=== PATIENT | female | born 1960 | race American Indian/Alaskan Native ===

== ENCOUNTER 2018-12-04 14:00 | Emergency (ER) | payer MEDICARE, MEDICAID ==
[~2018-12-04] VITALS: Ht 162.6 cm; Wt 1.0 kg
[~2018-12-04 14:00] MED LIST: CYCL-1 PO; HYDR1TAB PO; IBUP-1984 PO; MULTIVITAMIN PO; ONDA4TAB12 PO
[2018-12-04 14:20] VITALS: BP 119/75
[2018-12-04] MEDS ORDERED: GABA300C PO (14:48)
[2018-12-04] MEDS ORDERED: ACYC-202 PO (14:48)
[2018-12-04] MEDS ORDERED: HYDR-4383 PO (14:48)
[2018-12-04] MEDS ORDERED: ACYC5CRE2 TP (14:48)
== END 2018-12-04 15:13 | disposition home or self-care (01) ==
LOC: ER 14:01
DX: B02.9 Zoster without complications (principal); M19.90 Unspecified osteoarthritis, unspecified site; F12.90 Cannabis use, unspecified, uncomplicated; Z98.890 Other specified postprocedural states; Z79.2 Long term (current) use of antibiotics; Z79.899 Other long term (current) drug therapy
CPT/HCPCS: 99283

== ENCOUNTER 2019-11-15 17:09 | Emergency (ER) | payer MEDICARE, MEDICAID ==
[~2019-11-15] VITALS: Ht 160 cm; Wt 104.5 kg
[~2019-11-15 17:09] MED LIST changes: +GABA300C PO; +HYDR-4383 PO
[2019-11-15] MEDS ORDERED: normal saline 1000ML IV soln IVB ONE (17:45)
[2019-11-15] MEDS ORDERED: methylPREDNISolone sod succ 125mg/2ml vial IV ONE (17:45)
[2019-11-15 18:58] LABS: BASOPHILS % (AUTO) 0.3 % (0-1); EOSINOPHILS % (AUTO) 0.2 % (0-6); HEMATOCRIT 44.3 % (35.0-45.0); HEMOGLOBIN 15.3 g/dl (12.0-16.0); LYMPHOCYTES % (AUTO) 26.7 % (21-51); MEAN CORPUSCULAR HEMOGLOBIN 33.2 PG (27.0-31.0); MEAN CORPUSCULAR HGB CONC 34.5 g/dL (33.0-36.5); MEAN CORPUSCULAR VOLUME 96.2 FL (78-98); MONOCYTES # (AUTO) 0.3 X10'3 (0-0.9); MONOCYTES % (AUTO) 7.5 % (2-12); NEUTROPHILS # (AUTO) 2.5 X10'3 (1.8-7.7); NEUTROPHILS % (AUTO) 65.3 % (42-75); PLATELET COUNT 156 X10'3 (140-440); RED CELL DISTRIBUTION WIDTH 13.2 % (11.5-14.5); WHITE BLOOD COUNT 3.8 X10'3 (4.5-11.0)
[2019-11-15 19:04] LABS: ALANINE AMINOTRANSFERASE 42 U/L (12-78); ALBUMIN 3.8 G/DL (3.4-5.0); ALBUMIN/GLOBULIN RATIO 0.9 (1.1-1.5); ALKALINE PHOSPHATASE 88 IU/L (46-116); ANION GAP 12 (8-16); ASPARTATE AMINO TRANSFERASE 34 U/L (10-37); BILIRUBIN,TOTAL 0.6 MG/DL (0.1-1.0); BLOOD UREA NITROGEN 10 MG/DL (7-18); BUN/CREATININE RATIO 11.2 (6.6-38.0); CALCIUM 8.4 MG/DL (8.5-10.1); CHLORIDE 98 MMOL/L (99-107); CREATININE 0.89 MG/DL (0.40-0.90); GLUCOSE 107 MG/DL (70-104); POTASSIUM 4.1 MMOL/L (3.5-5.1); SODIUM 134 MMOL/L (135-145); TOTAL CARBON DIOXIDE 23.7 MMOL/L (24-32); eGFR 65 ML/MIN
[2019-11-15] MEDS ORDERED: PRED20TA PO (19:19)
[2019-11-15] MEDS ORDERED: ondansetron/PF 4mg/2ml inj IV ONE (19:25)
[2019-11-15 20:23] VITALS: BP 134/86
== END 2019-11-15 20:00 | disposition home or self-care (01) ==
LOC: ER 17:10
DX: J06.9 Acute upper respiratory infection, unspecified (principal); J45.909 Unspecified asthma, uncomplicated; M19.90 Unspecified osteoarthritis, unspecified site; F12.90 Cannabis use, unspecified, uncomplicated; R11.2 Nausea with vomiting, unspecified; R19.7 Diarrhea, unspecified; R50.9 Fever, unspecified; R05 Cough; R53.1 Weakness; R06.02 Shortness of breath; Z20.818 Contact with and (suspected) exposure to other bacterial communicable diseases
CPT/HCPCS: 36415; 71045; 80053; 83605; 83880; 84145; 85025; 87040; 93005; 96361; 96374; 96375; 99285; J2405; J2930; J7030

== ENCOUNTER 2019-11-19 16:18 | Inpatient (IN) | payer MEDICARE, MEDICAID ==
[~2019-11-19] VITALS: Ht 165.1 cm; Wt 104.5 kg
[~2019-11-19 16:18] MED LIST changes: +PRED20TA PO
--- NOTE | 2019-11-19 16:42 | NUR ---
STAFF IN CONTACT W/ PT: SHREYA, jaylene; KATIA roca; YAZAN ENGLISH
[2019-11-19] MEDS ORDERED: LIDOcaine/epinephrine/tetracaine TOPICAL sol 3 ML syringe TOP ONE (16:50)
[2019-11-19] MEDS ORDERED: normal saline 1000ml 1,000 ML IV ONE ×2 (17:25)
[2019-11-19 17:36] LABS: BASOPHILS % (AUTO) 0.2 % (0-1); EOSINOPHILS % (AUTO) 0.1 % (0-6); HEMATOCRIT 40.4 % (35.0-45.0); LYMPHOCYTES # (AUTO) 0.7 X10'3 (1.1-4.8); LYMPHOCYTES % (AUTO) 11.7 % (21-51); MEAN CORPUSCULAR HEMOGLOBIN 32.7 PG (27.0-31.0); MEAN CORPUSCULAR HGB CONC 34.8 g/dL (33.0-36.5); MEAN CORPUSCULAR VOLUME 94.2 FL (78-98); MEAN PLATELET VOLUME 7.8 FL (7.4-10.4); MONOCYTES # (AUTO) 0.3 X10'3 (0-0.9); MONOCYTES % (AUTO) 4.8 % (2-12); NEUTROPHILS # (AUTO) 4.6 X10'3 (1.8-7.7); NEUTROPHILS % (AUTO) 83.2 % (42-75); PLATELET COUNT 182 X10'3 (140-440); RED BLOOD COUNT 4.29 X10'6 (4.20-5.60); RED CELL DISTRIBUTION WIDTH 13.2 % (11.5-14.5); WHITE BLOOD COUNT 5.6 X10'3 (4.5-11.0)
[2019-11-19] MEDS ORDERED: ibuprofen tablet 400 MG TABLET PO ONE (17:40)
[2019-11-19 17:59] LABS: ALANINE AMINOTRANSFERASE 32 U/L (12-78); ALBUMIN 3.3 G/DL (3.4-5.0); ALBUMIN/GLOBULIN RATIO 0.7 (1.1-1.5); ALKALINE PHOSPHATASE 72 IU/L (46-116); ANION GAP 5 (8-16); ASPARTATE AMINO TRANSFERASE 29 U/L (10-37); BILIRUBIN,TOTAL 0.6 MG/DL (0.1-1.0); BLOOD UREA NITROGEN 15 MG/DL (7-18); CALCIUM 8.6 MG/DL (8.5-10.1); CHLORIDE 99 MMOL/L (99-107); CREATININE 0.88 MG/DL (0.40-0.90); GLUCOSE 95 MG/DL (70-104); POTASSIUM 3.3 MMOL/L (3.5-5.1); SODIUM 134 MMOL/L (135-145); TOTAL CARBON DIOXIDE 30.3 MMOL/L (24-32); TOTAL PROTEIN 7.8 G/DL (6.4-8.2); eGFR 66 ML/MIN
[2019-11-19] MEDS ORDERED: budesonide 0.5mg/2ml UD nebule IH STA (18:08)
[2019-11-19 18:12] LABS: CLARITY,URINE CLOUDY (Clear); COLOR,URINE YELLOW (Yellow); GLUCOSE, URINE NEGATIVE (Neg); KETONES,URINE 15 mg/dl (Neg); LEUKOCYTE ESTERASE ,URINE SMALL (Neg); NITRITES, URINE NEGATIVE (Neg); OCCULT BLOOD,URINE NEGATIVE (Neg); PH,URINE 6.5 (4.8-8.0); PROTEIN,URINE 30 mg/dl (Neg); UROBILINOGEN,URINE >=8.0 E.U/dL (0.2-1.0)
[2019-11-19 18:15] LABS: UA COLLECTION TYPE VOIDED
[2019-11-19 18:18] LABS: SQUAMOUS EPITHELIAL CELL,UR MANY /LPF (FEW); TRANSITIONAL EPI CELLS,URINE MANY /HPF
[2019-11-19 18:19] LABS: MUCUS STRANDS MODERATE /LPF (Neg)
[2019-11-19 18:20] LABS: WBC CLUMPS,URINE FEW /HPF (NEGATIVE); WBC,URINE 50-100 /HPF (0-4)
[2019-11-19 18:21] LABS: BACTERIA,URINE FEW /HPF (Neg); RBC,URINE 0-2 /HPF (0-2)
[2019-11-19] MEDS ORDERED: HYDR-4353 PO (18:26)
[2019-11-19] MEDS ORDERED: GABA-530 PO (18:31)
[2019-11-19] MEDS ORDERED: PRED5TAB PO (18:31)
[2019-11-19] MEDS ORDERED: CYCL-394 PO (18:31)
[2019-11-19] MEDS ORDERED: albuterol 2.5 MG/3 ML nebule NEB ONE (18:45)
[2019-11-19] MEDS ORDERED: ALBUTEROL INHALER 1 PUFF/90 MCG INHALER IH STA (18:55)
--- NOTE | 2019-11-19 19:22 | NUR ---
Albuterol MDI given. Unable to give pulmicort svn due to Covid + tx policy
[2019-11-19] MEDS ORDERED: acetaminophen 325mg tablet PO PRN (19:30)
[2019-11-19] MEDS ORDERED: mag hydrox/Alum hydrox/simeth 30ml oral suspension PO PRN (19:30)
[2019-11-19] MEDS ORDERED: magnesium hydroxide 30ml (MOM) UD suspension PO PRN (19:30)
[2019-11-19] MEDS ORDERED: ondansetron/PF 4mg/2ml inj IV PRN (19:30)
--- NOTE | 2019-11-19 20:23 | NUR ---
PAGED HOSPITALIST ADIS TO SEE IF PT CAN GO TO SURGICAL WITHOUT TELE THEY HAVE A NEGATIVE PRESSURE ROOM AVAILABLE.
[2019-11-19] MEDS: heparin, porcine 5000 units/ml vial SQ SCH (20:52)
[2019-11-19] MEDS: CefTRIAXone/D5W-Rocephin 1gm 50 ML IV SCH (20:52)
--- NOTE | 2019-11-19 20:56 | NUR ---
ADIS WAS TEXTED EARLIER ABOUT MOVING PT TO SURGICAL NO TELE AND PER POWER AND RECOVERY SHIFT ENGINEER, ADIS TEXTED BACK THAT HE AGREES WITH THE PLAN. ADMIT ORDER CHANGED AND SALES AND MARKETING AGENT AWARE.
[2019-11-19] MEDS ORDERED: dexamethasone sod phosphate 10mg/ml inj IV STA (21:46)
[2019-11-19 22:08] LABS: C-REACTIVE PROTEIN 13.97 MG/DL (0.0-0.5); LACTATE DEHYDROGENASE 391 U/L (81-234)
[2019-11-19 23:31] VITALS: BP 120/70
--- NOTE | 2019-11-20 00:42 | NUR ---
pt arrived to unit, labs drawn, placed in room, VSS, c/o headache and cough. no s/sx resp distress. pt oriented to room, call light in reach, 2x rails up, bll. will continue to monitor
[2019-11-20 01:06] LABS: BASOPHILS % (AUTO) 0.2 % (0-1); EOSINOPHILS % (AUTO) 0.1 % (0-6); HEMATOCRIT 35.3 % (35.0-45.0); HEMOGLOBIN 12.3 g/dl (12.0-16.0); LYMPHOCYTES # (AUTO) 0.9 X10'3 (1.1-4.8); LYMPHOCYTES % (AUTO) 13.9 % (21-51); MEAN CORPUSCULAR HEMOGLOBIN 33.5 PG (27.0-31.0); MEAN CORPUSCULAR VOLUME 95.7 FL (78-98); MEAN PLATELET VOLUME 7.7 FL (7.4-10.4); MONOCYTES # (AUTO) 0.3 X10'3 (0-0.9); MONOCYTES % (AUTO) 4.9 % (2-12); NEUTROPHILS # (AUTO) 5.5 X10'3 (1.8-7.7); NEUTROPHILS % (AUTO) 80.9 % (42-75); PLATELET COUNT 181 X10'3 (140-440); RED BLOOD COUNT 3.69 X10'6 (4.20-5.60); RED CELL DISTRIBUTION WIDTH 13.4 % (11.5-14.5); WHITE BLOOD COUNT 6.8 X10'3 (4.5-11.0)
[2019-11-20 01:15] LABS: ALBUMIN 2.8 G/DL (3.4-5.0); ANION GAP 9 (8-16); BLOOD UREA NITROGEN 13 MG/DL (7-18); BUN/CREATININE RATIO 15.3 (6.6-38.0); CALCIUM 7.8 MG/DL (8.5-10.1); CHLORIDE 102 MMOL/L (99-107); CREATININE 0.85 MG/DL (0.40-0.90); GLUCOSE 88 MG/DL (70-104); SODIUM 137 MMOL/L (135-145); TOTAL CARBON DIOXIDE 26.4 MMOL/L (24-32); eGFR 68 ML/MIN
[2019-11-20 01:17] LABS: D-DIMER 1.36 MG/L FEU (0-0.50)
--- NOTE | 2019-11-20 02:20 | NUR ---
pt c/o running fever and feeling hot. upon entering room, pt in bathroom. returned to bed, pt stated felt little dizzy but steady gait. increased O2 3L, educated on incentive spirometer and flutter valve use. will continue to monitor
[2019-11-20 02:31] VITALS: BP 123/78
--- NOTE | 2019-11-20 03:30 | NUR ---
pt resting comfortably, c/o sweatiness. provided sandwich crackers and yogurt
--- NOTE | 2019-11-20 06:15 | NUR ---
Patient in room [facility]. I have received report from Dm RIVERO and had the opportunity to ask questions and assume patient care.
[2019-11-20] MEDS: CefTRIAXone/D5W-Rocephin 1gm 50 ML IV SCH (08:13)
[2019-11-20] MEDS: heparin, porcine 5000 units/ml vial SQ SCH (08:14)
[2019-11-20 08:27] VITALS: BP 115/69
[2019-11-20] MEDS ORDERED: FLUT16SP26 (09:58)
[2019-11-20] MEDS ORDERED: ibuprofen 200mg tablet PO PRN (10:45)
--- NOTE | 2019-11-20 10:45 | NUR ---
PAGER ID: [phone] MESSAGE: Travis Surg [id number] RE: 341 Jaime [place]. Patient potassium is low at 3.0 did you want me to add Potassium protocol? Thanks Travis. Still waiting on C. Diff result.
[2019-11-20 10:55] LABS: C DIFF ANTIGEN NEGATIVE (NEGATIVE); C DIFF SPECIMEN=DIARRHEA? ACCEPTABLE; C DIFFICILE TOXINS A&B NEGATIVE (Neg)
[2019-11-20] MEDS ORDERED: loperamide 2mg capsule PO ONE (11:35)
[2019-11-20] MEDS ORDERED: loperamide 2mg capsule PO PRN (11:35)
--- NOTE | 2019-11-20 11:42 | NUR ---
PAGER ID: [phone] MESSAGE: Travis Surg [phone] RE: 341 [place], A Patient is negative C.Diff, but potassium is 3.0 would you like me to add protocol? Thanks.
[2019-11-20] MEDS ORDERED: potassium Cl 20 mEq SR tablet PO STA (11:48)
[2019-11-20 12:28] VITALS: BP 124/81
[2019-11-20] MEDS: enoxaparin 40mg/0.4ml syringe SUBCUT SCH (16:30)
[2019-11-20] MEDS: dexamethasone 4mg tablet PO SCH (17:09)
--- NOTE | 2019-11-20 18:11 | NUR ---
Problems reprioritized. Patient report given, questions answered & plan of care reviewed with Dm RIVERO.
[2019-11-20 19:19] VITALS: BP 120/73
--- NOTE | 2019-11-20 21:15 | NUR ---
pt in no apparent distress, administered inhaler, linens changed and assisted pt to shower
[2019-11-20] MEDS: ALBUTEROL INHALER 1 PUFF/90 MCG INHALER IH PRN (21:19)
[2019-11-21 00:27] VITALS: BP 112/73
[2019-11-21] MEDS: ALBUTEROL INHALER 1 PUFF/90 MCG INHALER IH PRN ×3 (05:34→17:45)
[2019-11-21 06:04] LABS: BASOPHILS % (AUTO) 0.2 % (0-1); EOSINOPHILS % (AUTO) 0 % (0-6); HEMATOCRIT 36.6 % (35.0-45.0); HEMOGLOBIN 12.6 g/dl (12.0-16.0); LYMPHOCYTES % (AUTO) 16.7 % (21-51); MEAN CORPUSCULAR HEMOGLOBIN 32.4 PG (27.0-31.0); MEAN CORPUSCULAR HGB CONC 34.4 g/dL (33.0-36.5); MEAN CORPUSCULAR VOLUME 94.4 FL (78-98); MEAN PLATELET VOLUME 7.8 FL (7.4-10.4); MONOCYTES # (AUTO) 0.5 X10'3 (0-0.9); MONOCYTES % (AUTO) 7.4 % (2-12); NEUTROPHILS # (AUTO) 4.7 X10'3 (1.8-7.7); NEUTROPHILS % (AUTO) 75.7 % (42-75); PLATELET COUNT 247 X10'3 (140-440); RED BLOOD COUNT 3.88 X10'6 (4.20-5.60); RED CELL DISTRIBUTION WIDTH 13.1 % (11.5-14.5); WHITE BLOOD COUNT 6.2 X10'3 (4.5-11.0)
[2019-11-21 06:13] LABS: D-DIMER 1.33 MG/L FEU (0-0.50)
[2019-11-21 06:16] LABS: ALBUMIN 2.8 G/DL (3.4-5.0); ANION GAP 10 (8-16); BLOOD UREA NITROGEN 16 MG/DL (7-18); BUN/CREATININE RATIO 22.9 (6.6-38.0); C-REACTIVE PROTEIN 8.82 MG/DL (0.0-0.5); CALCIUM 8.8 MG/DL (8.5-10.1); CHLORIDE 104 MMOL/L (99-107); GLUCOSE 133 MG/DL (70-104); LACTATE DEHYDROGENASE 273 U/L (81-234); POTASSIUM 3.7 MMOL/L (3.5-5.1); SODIUM 138 MMOL/L (135-145); TOTAL CARBON DIOXIDE 24.4 MMOL/L (24-32); eGFR 86 ML/MIN
--- NOTE | 2019-11-21 06:55 | NUR ---
Patient in room [facility]. I have received report from Dm RIVERO and had the opportunity to ask questions and assume patient care.
[2019-11-21] MEDS: dexamethasone 4mg tablet PO SCH (09:00)
[2019-11-21] MEDS: enoxaparin 40mg/0.4ml syringe SUBCUT SCH (09:02)
[2019-11-21 09:08] VITALS: BP 127/84
[2019-11-21 13:05] VITALS: BP 121/71
--- NOTE | 2019-11-21 18:10 | NUR ---
PAGER ID: [phone] MESSAGE: Travis Surg [id number] RE: 341 Ana Mendez Patient says she has not had more than one of slip since admitted and wanted a slip aid. Did you want to add Restoril or something? Thanks
--- NOTE | 2019-11-21 18:24 | NUR ---
Problems reprioritized. Patient report given, questions answered & plan of care reviewed with Adrienne RIVERO.
--- NOTE | 2019-11-21 18:30 | NUR ---
Received report from primary care nurse Travis RN. Assumed patient care. Patient is awake and alert on 1LNC. In no apparent distress eating her dinner. Call light and items of frequent use within reach. Will continue to monitor for changes. Denies needs at this time.
[2019-11-21 20:05] VITALS: BP 137/83
[2019-11-21] MEDS: zolpidem 5mg tablet PO PRN (20:19)
[2019-11-21] MEDS ORDERED: MULT-227 PO (20:35)
[2019-11-22 04:29] VITALS: BP 114/80
[2019-11-22 05:28] LABS: BASOPHILS % (AUTO) 0.1 % (0-1); EOSINOPHILS % (AUTO) 0.1 % (0-6); HEMATOCRIT 38.2 % (35.0-45.0); HEMOGLOBIN 13.4 g/dl (12.0-16.0); LYMPHOCYTES # (AUTO) 1.8 X10'3 (1.1-4.8); LYMPHOCYTES % (AUTO) 23.6 % (21-51); MEAN CORPUSCULAR HEMOGLOBIN 33.1 PG (27.0-31.0); MEAN CORPUSCULAR VOLUME 94.6 FL (78-98); MEAN PLATELET VOLUME 7.9 FL (7.4-10.4); MONOCYTES # (AUTO) 0.6 X10'3 (0-0.9); MONOCYTES % (AUTO) 7.9 % (2-12); NEUTROPHILS # (AUTO) 5.2 X10'3 (1.8-7.7); NEUTROPHILS % (AUTO) 68.3 % (42-75); PLATELET COUNT 276 X10'3 (140-440); RED BLOOD COUNT 4.04 X10'6 (4.20-5.60); RED CELL DISTRIBUTION WIDTH 13.2 % (11.5-14.5); WHITE BLOOD COUNT 7.5 X10'3 (4.5-11.0)
[2019-11-22 05:32] LABS: ALBUMIN 2.9 G/DL (3.4-5.0); ANION GAP 10 (8-16); BLOOD UREA NITROGEN 18 MG/DL (7-18); BUN/CREATININE RATIO 24.3 (6.6-38.0); C-REACTIVE PROTEIN 3.81 MG/DL (0.0-0.5); CALCIUM 8.7 MG/DL (8.5-10.1); CHLORIDE 104 MMOL/L (99-107); CREATININE 0.74 MG/DL (0.40-0.90); GLUCOSE 98 MG/DL (70-104); LACTATE DEHYDROGENASE 255 U/L (81-234); POTASSIUM 3.5 MMOL/L (3.5-5.1); SODIUM 139 MMOL/L (135-145); TOTAL CARBON DIOXIDE 25.2 MMOL/L (24-32); eGFR 80 ML/MIN
--- NOTE | 2019-11-22 06:20 | NUR ---
Patient is awake and alert on 1LNC in no apparent distress watching television. Reported off to Gissel RIVERO.
--- NOTE | 2019-11-22 06:31 | NUR ---
Patient in room [facility]. I have received report from JOSEFA CASEY and had the opportunity to ask questions and assume patient care.
[2019-11-22] MEDS: dexamethasone 4mg tablet PO SCH (08:20)
[2019-11-22] MEDS: enoxaparin 40mg/0.4ml syringe SUBCUT SCH (08:22)
[2019-11-22] MEDS: ALBUTEROL INHALER 1 PUFF/90 MCG INHALER IH PRN ×2 (08:29→12:45)
[2019-11-22 09:21] VITALS: BP 129/77
[2019-11-22 12:46] VITALS: BP 122/82
--- NOTE | 2019-11-22 13:51 | NUR ---
NO SHORTNESS OF BREATH Addendum: 11/22/19 at 1353 by Gissel Ramirez RT Amended: Links added.
--- NOTE | 2019-11-22 14:39 | NUR ---
Per Ester RN, pt c/o RTx entered room wearing a simple mask. Regi Langford Rocket Test Fire Worker, and Nataly De La Rosa, Director 3Surgical notified.
--- NOTE | 2019-11-22 16:43 | NUR ---
WAS ABLE TO WEEN PATIENT OFF OXYGEN, AT REST SATING AT 92-94 AND 90 AFTER GETTING UP TO BATHROOM.
--- NOTE | 2019-11-22 18:20 | NUR ---
Received report from primary care nurse Ester RIVERO. Patient is awake and alert sitting upright in bed on room air. In no apparent distress. HR 64 O2 94%. Call light and items of frequent use within reach. Will continue to monitor for changes.
--- NOTE | 2019-11-22 18:21 | NUR ---
Problems reprioritized. Patient report given, questions answered & plan of care reviewed with JOSEFA CASEY.
[2019-11-22 18:37] VITALS: BP 131/83
[2019-11-22] MEDS: zolpidem 5mg tablet PO PRN (21:01)
[2019-11-23 04:28] VITALS: BP 118/69
[2019-11-23 05:05] LABS: BASOPHILS % (AUTO) 0.1 % (0-1); EOSINOPHILS % (AUTO) 0.1 % (0-6); HEMATOCRIT 39.8 % (35.0-45.0); LYMPHOCYTES # (AUTO) 2.1 X10'3 (1.1-4.8); LYMPHOCYTES % (AUTO) 24.7 % (21-51); MEAN CORPUSCULAR HEMOGLOBIN 33.2 PG (27.0-31.0); MEAN CORPUSCULAR HGB CONC 35.3 g/dL (33.0-36.5); MEAN CORPUSCULAR VOLUME 94.1 FL (78-98); MEAN PLATELET VOLUME 7.6 FL (7.4-10.4); MONOCYTES # (AUTO) 0.6 X10'3 (0-0.9); MONOCYTES % (AUTO) 7.4 % (2-12); NEUTROPHILS # (AUTO) 5.7 X10'3 (1.8-7.7); NEUTROPHILS % (AUTO) 67.7 % (42-75); PLATELET COUNT 309 X10'3 (140-440); RED BLOOD COUNT 4.23 X10'6 (4.20-5.60); WHITE BLOOD COUNT 8.5 X10'3 (4.5-11.0)
[2019-11-23 05:22] LABS: ALBUMIN 3.1 G/DL (3.4-5.0); ANION GAP 9 (8-16); BLOOD UREA NITROGEN 18 MG/DL (7-18); BUN/CREATININE RATIO 22.5 (6.6-38.0); CALCIUM 9.2 MG/DL (8.5-10.1); CHLORIDE 102 MMOL/L (99-107); GLUCOSE 100 MG/DL (70-104); LACTATE DEHYDROGENASE 250 U/L (81-234); POTASSIUM 3.9 MMOL/L (3.5-5.1); SODIUM 138 MMOL/L (135-145); TOTAL CARBON DIOXIDE 27.1 MMOL/L (24-32); eGFR 73 ML/MIN
--- NOTE | 2019-11-23 06:00 | NUR ---
Reported off to Ester RIVERO. Patient is awake and alert on room air. In no apparent distress on room air. Call light and items of frequent use within reach.
--- NOTE | 2019-11-23 06:07 | NUR ---
Patient in room [facility]. I have received report from JOSEFA CASEY and had the opportunity to ask questions and assume patient care.
[2019-11-23] MEDS ORDERED: dexamethasone 4mg tablet PO SCH ×2 (08:00→13:41)
[2019-11-23 08:18] VITALS: BP 124/85
[2019-11-23] MEDS: enoxaparin 40mg/0.4ml syringe SUBCUT SCH (08:21)
[2019-11-23] MEDS: ALBUTEROL INHALER 1 PUFF/90 MCG INHALER IH PRN ×2 (08:22→12:37)
[2019-11-23] MEDS ORDERED: DEC4T PO (11:25)
[2019-11-23] MEDS ORDERED: ALBU8HFA PO (11:25)
[2019-11-23 12:38] VITALS: BP 112/76
--- NOTE | 2019-11-23 14:50 | NUR ---
PATIENT STABLE AND APPROPRIATE FOR DISCHARGE, IV TAKEN OUT, EDUCATION GIVEN, ALL BELONGINGS SENT WITH PATIENT, IS AND FLUTTER VALVE SENT WITH PATIENT, PATIENT WORE ALL APPROPRIATE PPE WHILE TRANSFERRING TO CAR, PATIENT TAKEN IN WHEEL CHAIR OUT A BACK ENTRANCE AND TAKEN TO CAR WHERE PATIENT WILL TAKE SELF HOME
[2019-11-24] MEDS ORDERED: dexamethasone 1mg tablet PO SCH (08:00)
== END 2019-11-23 13:55 | disposition home or self-care (01) | DRG 177 ==
LOC: ER 16:18 → ED HOLD 19:29 → SUR 3N 23:17
PROVIDERS: ADMIT Family Medicine; ATTEND Internal Medicine
DX: U07.1 COVID-19 (principal); J12.89 Other viral pneumonia; J96.01 Acute respiratory failure with hypoxia; E66.01 Morbid (severe) obesity due to excess calories; E86.0 Dehydration; E87.6 Hypokalemia; F12.90 Cannabis use, unspecified, uncomplicated; G89.4 Chronic pain syndrome; J45.909 Unspecified asthma, uncomplicated; M19.90 Unspecified osteoarthritis, unspecified site; R19.7 Diarrhea, unspecified; Z68.38 Body mass index [BMI] 38.0-38.9, adult
CPT/HCPCS: 36415; 71045; 80048; 80053; 81001; 83605; 83615; 84145; 85025; 85379; 86140; 87040; 87081; 87324; 87449; 93005; 94640; 94760; 96360; 99285; G0378; J0696; J1100; J1644; J1650; J7030

== ENCOUNTER 2022-06-06 21:36 | Emergency (ER) | payer MEDICARE, MEDICAID ==
[~2022-06-06] VITALS: Ht 160 cm; Wt 113.6 kg
[~2022-06-06 21:36] MED LIST changes: -CYCL-1 PO; +CYCL-394 PO; +FLUT16SP26; +GABA-530 PO; -GABA300C PO; +HYDR-4353 PO; -HYDR-4383 PO; -HYDR1TAB PO; -IBUP-1984 PO; +MULT-227 PO; -MULTIVITAMIN PO; -ONDA4TAB12 PO; -PRED20TA PO
[2022-06-06 21:51] VITALS: BP 151/79
[2022-06-06 22:18] LABS: BASOPHILS % (AUTO) 0.4 % (0-1); EOSINOPHILS # (AUTO) 0.3 X10'3 (0-0.9); EOSINOPHILS % (AUTO) 3.5 % (0-6); HEMOGLOBIN 14.1 g/dl (12.0-16.0); LYMPHOCYTES # (AUTO) 2.1 X10'3 (1.1-4.8); LYMPHOCYTES % (AUTO) 24.5 % (21-51); MEAN CORPUSCULAR HEMOGLOBIN 32.1 PG (27.0-31.0); MEAN CORPUSCULAR HGB CONC 34.3 g/dL (33.0-36.5); MEAN CORPUSCULAR VOLUME 93.6 FL (78-98); MONOCYTES # (AUTO) 0.7 X10'3 (0-0.9); MONOCYTES % (AUTO) 7.6 % (2-12); NEUTROPHILS # (AUTO) 5.5 X10'3 (1.8-7.7); PLATELET COUNT 251 X10'3 (140-440); RED BLOOD COUNT 4.38 X10'6 (4.20-5.60); RED CELL DISTRIBUTION WIDTH 12.7 % (11.5-14.5); WHITE BLOOD COUNT 8.6 X10'3 (4.5-11.0)
[2022-06-06 22:20] LABS: CLARITY,URINE CLEAR (Clear); COLOR,URINE YELLOW (Yellow); GLUCOSE, URINE NEGATIVE (Neg); KETONES,URINE NEGATIVE (Neg); LEUKOCYTE ESTERASE ,URINE NEGATIVE (Neg); NITRITES, URINE NEGATIVE (Neg); OCCULT BLOOD,URINE TRACE-INTACT (Neg); PH,URINE 5.5 (4.8-8.0); PROTEIN,URINE NEGATIVE (Neg); UROBILINOGEN,URINE 0.2 E.U/dL (0.2-1.0)
[2022-06-06 22:21] LABS: UA COLLECTION TYPE CLN CATCH MIDSTREAM; URINE HCG NEGATIVE (NEG)
[2022-06-06 22:30] LABS: BACTERIA,URINE NONE SEEN /HPF (Neg); MUCUS STRANDS FEW /LPF (Neg); RBC,URINE 0-2 /HPF (0-2); SQUAMOUS EPITHELIAL CELL,UR FEW /LPF (FEW); WBC,URINE 0-4 /HPF (0-4)
[2022-06-06 22:32] LABS: ALANINE AMINOTRANSFERASE 28 U/L (12-78); ALBUMIN 4.1 G/DL (3.4-5.0); ALBUMIN/GLOBULIN RATIO 1.1 (1.1-1.5); ALKALINE PHOSPHATASE 111 IU/L (46-116); ANION GAP 8 (8-16); ASPARTATE AMINO TRANSFERASE 14 U/L (10-37); BILIRUBIN,TOTAL 0.3 MG/DL (0.1-1.0); BLOOD UREA NITROGEN 14 MG/DL (7-18); BUN/CREATININE RATIO 16.7 (6.6-38.0); CALCIUM 9.4 MG/DL (8.5-10.1); CHLORIDE 104 MMOL/L (99-107); CREATININE 0.84 MG/DL (0.40-0.90); GLUCOSE 106 MG/DL (70-104); LIPASE 86 U/L (73-393); POTASSIUM 4.1 MMOL/L (3.5-5.1); SODIUM 139 MMOL/L (135-145); TOTAL CARBON DIOXIDE 26.8 MMOL/L (24-32); TOTAL PROTEIN 7.8 G/DL (6.4-8.2); eGFR 69 ML/MIN
[2022-06-06] MEDS ORDERED: normal saline 1000ml 1,000 ML IV ONE (23:20)
[2022-06-06] MEDS ORDERED: morphine 4 MG/ML inj SYRINge IV ONE (23:20)
[2022-06-06] MEDS ORDERED: ondansetron/PF 4mg/2ml inj IV ONE (23:20)
[2022-06-06] MEDS ORDERED: iohexol 300mg/ml 100ml inj. ONE (23:25)
[2022-06-07] MEDS ORDERED: CIPR-20 PO (03:38)
[2022-06-07] MEDS ORDERED: DICY10CA88 PO (03:38)
== END 2022-06-07 04:12 | disposition home or self-care (01) ==
LOC: ER 21:36
DX: S39.012A Strain of muscle, fascia and tendon of lower back, initial encounter (principal); K52.9 Noninfective gastroenteritis and colitis, unspecified; J45.909 Unspecified asthma, uncomplicated; M19.90 Unspecified osteoarthritis, unspecified site; F12.90 Cannabis use, unspecified, uncomplicated; Z90.49 Acquired absence of other specified parts of digestive tract; Z98.890 Other specified postprocedural states; X58.XXXA Exposure to other specified factors, initial encounter; Y93.89 Activity, other specified; Y92.89 Other specified places as the place of occurrence of the external cause; Y99.8 Other external cause status
CPT/HCPCS: 36415; 74177; 80053; 81001; 81025; 83690; 85025; 96361; 96374; 99285; J2270; J2405; J3490; J7030; Q9967; 99281

== ENCOUNTER 2022-06-29 03:20 | Emergency (ER) | payer MEDICARE, MEDICAID ==
[~2022-06-29] VITALS: Ht 160 cm; Wt 104.5 kg
[2022-06-29 03:28] VITALS: BP 131/68
== END 2022-06-29 05:17 | disposition left against medical advice (07) ==
LOC: ER 03:21
DX: R06.02 Shortness of breath (principal); R05.9 Cough, unspecified; Z53.21 Procedure and treatment not carried out due to patient leaving prior to being seen by health care provider
CPT/HCPCS: 99281

== ENCOUNTER 2024-02-04 03:41 | Emergency (ER) | payer MEDICARE, MEDICAID ==
[~2024-02-04] VITALS: Ht 160 cm; Wt 109.0 kg
[2024-02-04] MEDS: normal saline 1000ml 1,000 ML IV ONE (04:28)
[2024-02-04] MEDS: ondansetron/PF 4mg/2ml inj IV ONE (04:28)
[2024-02-04] MEDS ORDERED: ONDA-243 PO (04:42)
[2024-02-04 04:43] LABS: BASOPHILS % (AUTO) 0.5 % (0-1); EOSINOPHILS # (AUTO) 0.1 X10'3 (0-0.9); EOSINOPHILS % (AUTO) 1.4 % (0-6); HEMATOCRIT 44.7 % (35.0-45.0); HEMOGLOBIN 15.3 g/dl (12.0-16.0); LYMPHOCYTES # (AUTO) 1.7 X10'3 (1.1-4.8); MEAN CORPUSCULAR HEMOGLOBIN 32.2 PG (27.0-31.0); MEAN CORPUSCULAR HGB CONC 34.2 g/dL (33.0-36.5); MEAN CORPUSCULAR VOLUME 94.4 FL (78-98); MEAN PLATELET VOLUME 8.2 FL (7.4-10.4); MONOCYTES # (AUTO) 0.7 X10'3 (0-0.9); NEUTROPHILS # (AUTO) 7.2 X10'3 (1.8-7.7); NEUTROPHILS % (AUTO) 74.1 % (42-75); PLATELET COUNT 253 X10'3 (140-440); RED BLOOD COUNT 4.74 X10'6 (4.20-5.60); WHITE BLOOD COUNT 9.7 X10'3 (4.5-11.0)
[2024-02-04 04:43] LABS: BILIRUBIN,URINE NEGATIVE (Neg); CLARITY,URINE CLOUDY (Clear); COLOR,URINE YELLOW (Yellow); GLUCOSE, URINE NEGATIVE (Neg); KETONES,URINE NEGATIVE (Neg); LEUKOCYTE ESTERASE ,URINE TRACE (Neg); NITRITES, URINE NEGATIVE (Neg); OCCULT BLOOD,URINE NEGATIVE (Neg); PH,URINE 8.5 (4.8-8.0); PROTEIN,URINE NEGATIVE (Neg); UROBILINOGEN,URINE 0.2 E.U/dL (0.2-1.0)
[2024-02-04 04:47] LABS: ALANINE AMINOTRANSFERASE 32 U/L (12-78); ALBUMIN 4.3 G/DL (3.4-5.0); ALKALINE PHOSPHATASE 116 IU/L (46-116); ANION GAP 10 (8-16); ASPARTATE AMINO TRANSFERASE 20 U/L (10-37); BILIRUBIN,TOTAL 0.6 MG/DL (0.1-1.0); BLOOD UREA NITROGEN 14 MG/DL (7-18); BUN/CREATININE RATIO 13.5 (10.0-20.0); CALCIUM 9.5 MG/DL (8.5-10.1); CHLORIDE 103 MMOL/L (99-107); CREATININE 1.04 MG/DL (0.40-0.90); GLUCOSE 138 MG/DL (70-104); LIPASE 32 U/L (16-77); SODIUM 141 MMOL/L (135-145); TOTAL CARBON DIOXIDE 27.8 MMOL/L (24-32); TOTAL PROTEIN 8.4 G/DL (6.4-8.2); eCRCL 46 ML/MIN; eGFR 54 ML/MIN
[2024-02-04 04:48] LABS: UA COLLECTION TYPE VOIDED
[2024-02-04 04:51] LABS: RBC,URINE 0-2 /HPF (0-2)
[2024-02-04 04:52] LABS: AMORPHOUS PHOSPHATES 3+; BACTERIA,URINE FEW /HPF (Neg); SQUAMOUS EPITHELIAL CELL,UR MANY /LPF (FEW); TRANSITIONAL EPI CELLS,URINE MODERATE /HPF
[2024-02-04 04:54] LABS: TRIPLE PHOSPHATE CRYST 1+ /HPF (NEGATIVE)
[2024-02-04 06:24] VITALS: BP 134/79; PULSE 78; RESP 20; TEMP 98.2; O2SAT 96
== END 2024-02-04 06:17 | disposition home or self-care (01) ==
LOC: ER 03:41
DX: R11.10 Vomiting, unspecified (principal); R19.7 Diarrhea, unspecified; J45.909 Unspecified asthma, uncomplicated; E07.9 Disorder of thyroid, unspecified; M19.90 Unspecified osteoarthritis, unspecified site; F12.90 Cannabis use, unspecified, uncomplicated; Z90.49 Acquired absence of other specified parts of digestive tract; Z98.890 Other specified postprocedural states; Z79.899 Other long term (current) drug therapy
CPT/HCPCS: 36415; 80053; 81001; 83690; 85025; 96361; 96374; 99284; J2405; J7030

== ENCOUNTER 2024-08-07 21:42 | Emergency (ER) | payer MEDICARE, MEDICAID ==
[~2024-08-07] VITALS: Ht 160 cm; Wt 109.1 kg
[~2024-08-07 21:42] MED LIST changes: +ONDA-243 PO
[2024-08-08 00:47] VITALS: BP 140/78; PULSE 80; RESP 18; TEMP 98.6; O2SAT 99
== END 2024-08-08 00:48 | disposition home or self-care (01) ==
LOC: ER 21:42
DX: Z48.01 Encounter for change or removal of surgical wound dressing (principal); J45.909 Unspecified asthma, uncomplicated; M19.90 Unspecified osteoarthritis, unspecified site; F12.90 Cannabis use, unspecified, uncomplicated; Z90.49 Acquired absence of other specified parts of digestive tract
CPT/HCPCS: 99281; A6253; A6402; A6449